=== PATIENT | male | born 1980 | race Caucasian/White ===

== ENCOUNTER 2022-09-30 20:59 | Emergency (ER) | payer OTHER ==
[2022-09-30 21:03] VITALS: BP 134/76; PULSE 84; RESP 18; TEMP 98; BMI 35.5
== END 2022-10-01 00:52 | disposition home or self-care (01) ==
LOC: JERFT 20:59
PROC: 2W3RX1Z Immobilization of Left Lower Leg using Splint (ICD-10-PCS; principal; 2022-09-30)
DX: S82.832A Other fracture of upper and lower end of left fibula, initial encounter for closed fracture (principal); M25.572 Pain in left ankle and joints of left foot; W17.89XA Other fall from one level to another, initial encounter; X50.1XXA Overexertion from prolonged static or awkward postures, initial encounter; Y93.H2 Activity, gardening and landscaping; Y99.0 Civilian activity done for income or pay
CPT/HCPCS: 73610-TC-LT-FY; 73630-TC-LT; 99283-25

== ENCOUNTER 2022-10-19 10:35 | Day surgery (SDC) | payer OTHER ==
[2022-10-16 15:10] VITALS: BMI 37.1
[2022-10-19] MEDS ORDERED: MIDAZOLAM HCL 2 MG/2 ML SINGLE DOSE VIAL ONE ×2 (12:09→15:37)
[2022-10-19] MEDS ORDERED: BUPIVACAINE LIPOSOME/PF (EXPAREL) 266 MG/20 ML VIAL ONE (12:09)
[2022-10-19] MEDS ORDERED: BUPIVACAINE HCL/PF 0.5% (5MG/ML) 10 ML VIAL ONE ×2 (12:10→12:17)
[2022-10-19] MEDS ORDERED: PROPOFOL 20 ML ONE (12:49)
[2022-10-19] MEDS ORDERED: ONDANSETRON 4 MG/2 ML VIAL ONE ×2 (13:18→15:36)
[2022-10-19] MEDS ORDERED: ceFAZolin SODIUM 1 GM VIAL ONE (13:18)
[2022-10-19] MEDS ORDERED: DEXAMETHASONE SOD PHOSPHATE 4 MG/1 ML VIAL ONE (13:18)
[2022-10-19] MEDS ORDERED: ONDANSETRON 4 MG/2 ML VIAL IVPUSH PRN (15:47)
[2022-10-19] MEDS ORDERED: oxyCODONE HCL 5 MG TABLET PO PRN (15:47)
[2022-10-19] MEDS ORDERED: LACTATED RINGERS SOLUTION 1,000 ML IV SCH (16:00)
[2022-10-19 16:27] VITALS: RESP 16; TEMP 97.9
[2022-10-19 16:33] VITALS: BP 142/84; PULSE 81
== END 2022-10-19 16:57 | disposition home or self-care (01) ==
LOC: FASU 10:35
PROVIDERS: ATTEND Orthopaedic Surgery Sports Medicine
PROC: 0SSG0ZZ Reposition Left Ankle Joint, Open Approach (ICD-10-PCS; 2022-10-19)
PROC: 0QSK04Z Reposition Left Fibula with Internal Fixation Device, Open Approach (ICD-10-PCS; principal; 2022-10-19 13:36)
DX: S82.62XA Displaced fracture of lateral malleolus of left fibula, initial encounter for closed fracture (principal); S93.432A Sprain of tibiofibular ligament of left ankle, initial encounter; X50.1XXA Overexertion from prolonged static or awkward postures, initial encounter; Y93.9 Activity, unspecified; Y92.9 Unspecified place or not applicable
CPT/HCPCS: 27784; 27829; C1713; 73610-TC-LT-FY; 94760

== ENCOUNTER 2024-03-19 17:54 | Emergency (ER) | payer OTHER ==
[2024-03-19 18:54] VITALS: PULSE 62; RESP 18; TEMP 99.4; BMI 35.5
[2024-03-19 19:26] VITALS: BP 147/101
== END 2024-03-19 20:01 | disposition home or self-care (01) ==
LOC: FER 17:54
DX: R09.A2 Foreign body sensation, throat (principal)
CPT/HCPCS: 70360-TC-FY; 99283-25